=== PATIENT | male | born 1985 | race Caucasian/White ===

== ENCOUNTER 2023-10-27 18:31 | Emergency (ER) | payer OTHER, SELFPAY ==
[2023-10-27 18:34] VITALS: BP 149/73; PULSE 72; RESP 16; TEMP 36.8; O2SAT 97
--- NOTE | 2023-10-27 18:55 | W.ED.GENAD ---
Discharge Plan Disposition Patient Disposition: Home Condition: Stable Discharge Details Clinical Impression: Pain, dental Primary Care Provider: None,None ED Provider: Catrachita Kauffman Home Meds and New Rx's Prescriptions: No Action amoxicillin-pot clavulanate 875-125 mg tablet 1 tab PO BID Discharge Instructions Instructions: Toothache (ED) Additional Instructions: Please continue taking your prescribed antibiotic as indicated. Take [id number]-[id number]-[id number] Tylenol and ibuprofen, Tylenol up to 1000 mg every 6 hours and ibuprofen up to 800 mg every 8 hours. Please do not miss your dental appointment this Friday and return to the emergency department immediately with any worsening symptoms or any other concerns. HPI General Date/Time Provider Initiated Documentation: 10/27/23 18:38. HPI Narrative: The patient's is a 38-year-old male without any significant past medical history who comes to the emergency department for dental pain. Reports that he has had pain on the right upper and right lower molar since June but this particular episode started acting up just a couple days ago. Denies trauma or injury to his mouth. Denies tasting blood or pus in his mouth. Reports he went to the emergency department in [place] and he was a good prescription for Augmentin. Reports he had taken 2 doses so far. Reports has been taking Tylenol and ibuprofen. Reports in the past when his tooth has acted up he takes 1 dose of antibiotic and he is better but this time he has not. Reports he has a dental appointment but is not until Friday and because of continued symptoms came to the emergency department. Denies any fever. Denies any nausea or vomiting. Denies changes in bowel habits. Related Data Home Medications Medication Instructions Recorded Confirmed amoxicillin 875 mg-potassium 1 tab PO BID 10/27/23 10/27/23 clavulanate 125 mg tablet Allergies Allergy/AdvReac Type Severity Reaction Status Date / Time No Known Allergies Allergy Unverified 10/27/23 18:36 General Stated Complaint: DentalOral HIRO: 4 Review of Systems Narrative: Review of systems are negative except as mentioned. Exam Narrative Exam Narrative: The patient is in no acute distress. Oral mucosal membranes are moist. The patient has tenderness to the space where tooth #3 would be and Tenderness to palpation of tooth #31. There is no visualized gumline abscess. There is no fullness to the soft or hard palate or the floor of the mouth. He has no trismus. He has no submandibular fullness. Patient is tachycardic otherwise regular. Lungs are clear to auscultation. Abdomen is soft and nontender throughout. Course Vital Signs Vital signs: Vital Signs Temperature 36.8 C 10/27/23 18:34 Pulse 72 10/27/23 18:34 Respiratory Rate 16 10/27/23 18:34 Blood Pressure 149/73 H 10/27/23 18:34 Pulse Oximetry 97 10/27/23 18:34 Temperature 36.8 C 10/27/23 18:34 Pulse 72 10/27/23 18:34 Respiratory Rate 16 10/27/23 18:34 Blood Pressure 149/73 H 10/27/23 18:34 Pulse Oximetry 97 10/27/23 18:34 Procedures Nerve Block Nerve Block 1: Time out performed: Yes Local Anesthetic: Bupivicaine 0.5% Amount of anesthesia used (mL): 5 Side: right Nerve Blocks: other Intraoral Nerve Block: superior alveolar and inferior alveolar Procedure Successful: Yes Patient Tolerated Procedure: well Complications: none Medical Decision Making I told the patient that it is likely that the oral antibiotic has not taken full effect as yet which is why he is still symptomatic. I therefore recommended continued antibiotic use as indicated. I asked him to continue Tylenol and ibuprofen as well. Patient was told that we can do a dental block when he was at [place]. I told him this is something that I can do today but this will not keep him numb until Friday. Nevertheless he would like to give this a try. The distribution of the inferior alveolar nerve and anterior superior alveolar nerves were identified. Bupivacaine was injected into those regions. A short time later adequate analgesia was obtained. The patient reports his pain is resolved and at this point ready to go home. He is therefore to be discharged shortly. He is asked to not miss his dental appointment this Friday, continue taking his antibiotic, ibuprofen and Tylenol. Quality:SDOH Health Related Social Needs: No Data to Display PFSH All Active Problems (Updated 10/27/23 @ 18:56 by Catrachita Kauffman DO) Pain, dental (Acute) Social History Smoking/Tobacco Use Status: Current every day Smoking risk assessment performed?: Yes Drug use: Daily Substance use type: marijuana
== END 2023-10-27 19:12 | disposition home or self-care (01) ==
PROVIDERS: Emergency Provider Emergency Medicine
DX: K08.89 Other specified disorders of teeth and supporting structures (principal); F17.200 Nicotine dependence, unspecified, uncomplicated
CPT/HCPCS: 64400; 99283; J0665